=== PATIENT | female | born 1955 | race Caucasian/White ===

== ENCOUNTER → 2018-04-12 14:02 | Outpatient (CLI) | payer OTHER, SELFPAY ==
[2018-04-12 14:48] VITALS: BP 141/84; PULSE 96; RESP 16; TEMP 36.6; O2SAT 98
[2018-04-12] MEDS: IRON SUCROSE 200 MG in SODIUM CHLORIDE 0.9% 100 ML 220 ML IV (15:03)
== END ==
PROVIDERS: PCP Family Medicine; Visit Provider Family Medicine
DX: D50.8 Other iron deficiency anemias (principal)
CPT/HCPCS: 96365; J1756

== ENCOUNTER → 2019-03-14 17:06 | Outpatient (CLI) | payer OTHER, SELFPAY ==
[2019-03-14 17:47] LABS: Alanine Aminotransferase 28 IU/L (9-52); Albumin Globulin Ratio 1.4 (1.0-2.8); Alkaline Phosphatase 112 U/L (38-126); Aspartate Aminotransferase 26 IU/L (14-36); Bilirubin Total 0.2 mg/dL (0.2-1.3); Blood Urea Nitrogen 22 mg/dL (7-17); Calcium 8.7 mg/dL (8.4-10.2); Carbon Dioxide 24 mmol/L (22-32); Chloride 104 mmol/L (98-107); Estimated Glomerular Filt Rate 50.5 mL/min (>60); Globulin 2.8 g/dL (1.7-4.1); Glucose 81 mg/dL (80-110); HEMOLYSIS < 15 (0-50); Potassium 4.2 mmol/L (3.4-5.1); Sodium 138 mmol/L (137-145); Total Protein 6.8 g/dL (6.3-8.2)
[2019-03-14 17:52] LABS: Add Manual Diff / Slide Review NO; Basophils Absolute Auto 100 /uL (0-100); Basophils Percent Auto 2.1 % (0-2); Eosinophils Absolute Auto 400 /uL (0-450); Eosinophils Percent Auto 6.9 % (2-4); Hematocrit 33.9 % (36-46); Hemoglobin 10.7 g/dL (12.0-16.0); Lymphocytes Absolute Auto 1700 /uL (1100-4500); Lymphocytes Percent Auto 28.1 % (25-40); Mean Corpuscular HGB Conc 31.7 % (30-36); Mean Corpuscular Hemoglobin 23.2 PG (26-34); Mean Corpuscular Volume 73.1 fL (80-100); Monocytes Absolute Auto 500 /uL (0-900); Monocytes Percent Auto 8.9 % (3-14); Neutrophils Absolute Auto 3300 /uL (1500-7000); Platelet Count 291 X10^3/uL (150-400); Red Blood Cell Count 4.63 X10^6/uL (4.0-5.2); Red Cell Distribution Width 16.1 % (11.6-14.8)
[2019-03-14 18:04] LABS: Free T3, Triiodothyronine Free 3.75 pg/mL (2.77-5.27); Free T4, Direct Thyroxine 1.59 ng/dL (0.78-2.19); Vitamin D 25 Hydroxy (D3) 88.4 ng/mL (30.0-100.0)
[2019-03-14 18:18] LABS: Thyroid Stimulating Hormone 1.71 uIU/mL (0.47-4.68)
[2019-03-15 11:31] LABS: HEMOLYSIS < 15 (0-50); Iron 20 ug/dL (37-170)
[2019-03-15 11:42] LABS: Percent Iron Saturation 5 % (15-50); Total Iron Binding Capacity 374 ug/dL (265-497); Transferrin 298 mg/dL (206-381)
[2019-03-15 11:58] LABS: Reticulocyte Count, Percent 0.8 % (1.06-2.63)
[2019-03-15 12:08] LABS: Ferritin 7.4 ng/mL (11.1-264)
[2019-03-15 12:22] LABS: Vitamin B12 > 1000 pg/mL (239-931)
[2019-03-18 15:01] LABS: Thyroid Peroxidase Antibodies 1 IU/mL (< 9)
[2019-03-21 15:51] LABS: Triiodothyronine T3 Reverse 22 ng/dL (8-25)
== END ==
PROVIDERS: PCP Family Medicine; Visit Provider Family Medicine
DX: D50.8 Other iron deficiency anemias (principal); E03.9 Hypothyroidism, unspecified; F32.9 Major depressive disorder, single episode, unspecified; N18.3 Chronic kidney disease, stage 3 (moderate); N20.0 Calculus of kidney
CPT/HCPCS: 36415; 80053; 82306; 82607; 82728; 83540; 83550; 84439; 84443; 84481; 84482; 85025; 85045; 86376

== ENCOUNTER → 2019-03-31 10:10 | Outpatient (CLI) | payer OTHER, SELFPAY ==
--- NOTE | 2019-03-31 10:13 | DI.US.S_ITS ---
PROCEDURE: US ABDOMEN LIMITED INDICATIONS: VETNRAL HERNIA TECHNIQUE: Real-time focused scanning was performed of the abdomen, with image documentation. COMPARISON: None. FINDINGS: In the area of clinical concern, where there is a clinically suspected hernia, no sonographic evidence of hernia or focal mass identified, with and without Valsalva. Elsewhere, there are possible small 7 mm fat containing charmaine-incisional hernias although technically nonspecific. The right and lateral to the umbilicus, there is a 9 x 6 x 10 mm cystic structure, potentially small seroma versus cyst. IMPRESSION: Possible subcentimeter charmaine-incisional fat containing hernias however, no discrete or definite hernia identified in the area of primary clinical concern.If there is persistent clinical suspicion, further assessment with CT could be performed. Small periumbilical cystic structure presumably seroma. Dictated by: Brayan Antony M.D. on 03/31/2019 at 17:11 Approved by: Brayan Antony M.D. on 03/31/2019 at 17:15
== END ==
PROVIDERS: PCP Family Medicine; Visit Provider Family Medicine
DX: K43.9 Ventral hernia without obstruction or gangrene (principal)
CPT/HCPCS: 76705